=== PATIENT | male | born 1970 ===

== ENCOUNTER 2023-02-12 07:55 | Day surgery (SDC) | payer BC ==
[~2023-02-12] VITALS: Ht 175.3 cm; Wt 108.7 kg
[~2023-02-12 07:55] MED LIST: AMOX250 PO; ESOM20 PO; ROSU10TA PO
[2023-02-12 11:21] VITALS: BP 117/81
--- NOTE | 2023-02-12 12:41 | NUR ---
02/12/23 1241 Nidhi Arceo LATE ENTRY: PT ABLE TO TOLERATE EATING AND DRINKING WITH NO ISSUES. NO C/O NAUSEA. PT C/O INCREASING PAIN AT OPERATIVE SITE IN SDU, GAVE 50MG OF TRAMADOL PER MD ORDERS. VSS. AT BEDSIDE FOR DISCHARGE INSTRUCTIONS. PT ASKED MD IF OKAY TO GO TO [facility] APPT TOMORROW, MD APPROVED WITH NO CONCERNS, REMINDED PT TO KEEP EXTREMITY ELEVATED. PT STATED NUMBNESS IN FINGERS AND "FELT LIKE THE DRESSING IS TOO TIGHT". MD CHECKED PERFUSION OF FINGERS, PERFUSION WNL, PT EDUCATED THAT THE NUMBING AGENTS GIVEN FOR SURGERY COULD MAKE THE FINGERS FEEL NUMB. LATER BEFORE DISCHARGE ASKED ABOUT THE DRESSING "BEING TOO TIGHT, RN EDUCATED PT AND HOW TO CHECK PERFUSION OF EXTREMITY AND S/S OF DECREASED CIRCULATION. PT AND EXPRESSED UNDERSTANDING OF EDUCATION AND REITERATED THAT IF DRESSING BECOMES TOO TIGHT OR S/S OF DECREASED CIRCULATION, DISCHARGE INSTRUCTIONS STATE OKAY TO LOOSEN PREET WRAP BUT KEEP GAUZE IN PLACE FOR 2 DAYS. VSS. PT STATED PAIN DECREASED TO 2/10 AND TOLERABLE AT DISCHARGE. CALLED AFTER DISCHARGE TO GIVE DR. ARRIAZA PAIN CONTROL GUIDELINE, LEFT A MESSAGE THAT SHE CAN PICK THAT UP AT THE [facility] OR CALL AND WILL GO OVER PAIN CONTROL GUIDELINE. RN LET DR. ARRIAZA KNOW THAT PT WAS NOT SENT HOME WITH HANDOUT AND LEFT MESSAGE FOR .
== END 2023-02-12 11:52 | disposition home or self-care (01) ==
LOC: ORSCSDS 07:55
PROVIDERS: Orthopaedic Surgery
PROC: 01N40ZZ Release Ulnar Nerve, Open Approach (ICD-10-PCS; principal; 2023-02-12 09:15)
PROC: 01N54ZZ Release Median Nerve, Percutaneous Endoscopic Approach (ICD-10-PCS; principal; 2023-02-12 09:15)
DX: G56.03 Carpal tunnel syndrome, bilateral upper limbs (principal); G56.23 Lesion of ulnar nerve, bilateral upper limbs; E66.9 Obesity, unspecified; Z68.35 Body mass index [BMI] 35.0-35.9, adult; K21.9 Gastro-esophageal reflux disease without esophagitis; E78.00 Pure hypercholesterolemia, unspecified; Z79.899 Other long term (current) drug therapy
CPT/HCPCS: A9270; J0171; J0690; J1100; J1885; J2405; J2704; J2795; J3010; J7120

== ENCOUNTER 2023-05-28 07:06 | Day surgery (SDC) | payer BC ==
[~2023-05-28] VITALS: Ht 175.3 cm; Wt 108.9 kg
--- NOTE | 2023-05-28 08:08 | NUR ---
05/28/23 0808 Velma Dunne 1 MG VERSED GIVEN PER ORDERS AT 0759 AFTER CATIE VERIFIED PROCEDURE AND CONSENT WITH PT
[2023-05-28 08:57] VITALS: BP 123/79
--- NOTE | 2023-05-28 09:11 | NUR ---
05/28/23 0911 Mitchel Atkins IV REMOVED INTACT. SITE WNL.
== END 2023-05-28 09:25 | disposition home or self-care (01) ==
LOC: ORSCSDS 07:06
PROVIDERS: Orthopaedic Surgery
PROC: 01N54ZZ Release Median Nerve, Percutaneous Endoscopic Approach (ICD-10-PCS; principal; 2023-05-28 08:30)
DX: G56.02 Carpal tunnel syndrome, left upper limb (principal); Z79.899 Other long term (current) drug therapy
CPT/HCPCS: J2250; J7120

== ENCOUNTER 2025-01-15 16:15 | Observation (INO) | payer OTHER ==
[~2025-01-15] VITALS: Ht 172.7 cm; Wt 107.7 kg
[2025-01-15 17:30] LABS: Albumin, Blood 4.1 g/dL (3.4-5.0); Albumin/Globulin Ratio 1.3 (0.8-1.8); Bilirubin, Total 1.1 mg/dL (0.1-1.0); Bun/Creatinine Ratio 12.4 (12.0-20.0); Calcium, Blood 9.1 mg/dL (8.5-10.1); Creatinine, Blood 1.13 mg/dL (0.60-1.20); Globulin, Blood 3.1 g/dL (2.2-4.0); Potassium, Blood 3.5 mmol/L (3.5-5.5); Total Protein, Blood 7.2 g/dL (6.4-8.2)
[2025-01-15] MEDS ORDERED: NS 1,000 ML IV SCH (17:30)
[2025-01-15] MEDS ORDERED: Ondansetron HCl 2 MG / ML 2ML Vial IV ONE (17:30)
[2025-01-15] MEDS ORDERED: FentaNYL Citrate 50 MCG/ML 2 ML Injection IV ONE (17:30)
[2025-01-15 17:50] LABS: BASOPHILS ABSOLUTE AUTO 0.08 K/mm3 (0.00-0.23); BASOPHILS PERCENT AUTO 1 % (0-2); EOSINOPHILS ABSOLUTE AUTO 0.16 K/mm3 (0.00-0.68); EOSINOPHILS PERCENT AUTO 2 % (0-6); Hematocrit 41.8 % (37.0-53.0); IMMATURE GRAN ABSOLUTE AUTO 0.06 K/mm3 (0.00-0.10); IMMATURE GRAN PERCENT AUTO 1 % (0-1); LYMPHOCYTES ABSOLUTE AUTO 2.34 K/mm3 (0.84-5.20); LYMPHOCYTES PERCENT AUTO 22 % (21-46); MONOCYTES ABSOLUTE AUTO 0.78 K/mm3 (0.16-1.47); MONOCYTES PERCENT AUTO 7 % (4-13); Mean Corpuscular HGB 31.9 pg (26.0-34.0); Mean Corpuscular HGB Conc 35.9 g/dL (31.5-36.5); Mean Corpuscular Volume 89 fL (80-100); Mean Platelet Volume 11.3 fL (9.1-12.4); NEUTROPHILS ABSOLUTE AUTO 7.24 K/mm3 (1.96-9.15); NEUTROPHILS PERCENT AUTO 68 % (41-73); Platelet Count 206 K/mm3 (150-400); RDW Coefficient Variation 11.9 % (11.7-14.2); RDW Standard Deviation 38.6 fL (35.1-46.3); White Blood Cell Count 10.66 K/mm3 (4.00-11.30)
[2025-01-15] MEDS ORDERED: Ondansetron HCl 2 MG / ML 2ML Vial IV PRN (19:05)
[2025-01-15] MEDS ORDERED: HYDROmorphone HCl 2 MG Tab PO PRN (19:05)
[2025-01-15] MEDS ORDERED: FentaNYL Citrate 50 MCG/ML 2 ML Injection IV PRN (19:05)
[2025-01-15] MEDS ORDERED: Lactated Ringer's 1,000 ML IV SCH (19:05)
[2025-01-15] MEDS ORDERED: Ondansetron 4 MG TAB PO PRN (19:05)
[2025-01-15] MEDS ORDERED: Ketorolac Tromethamine 30mg Vial IV PRN (19:20)
[2025-01-15 21:50] VITALS: BP 108/69
[2025-01-16] VITALS (15 sets, daily range): BP systolic 99–125; BP diastolic 56–83
--- NOTE | 2025-01-16 02:56 | NUR ---
0050 RN TO ROOM TO REASSESS MEDICATION ADMIN; PT SLEEPING.
--- NOTE | 2025-01-16 05:31 | NUR ---
01/15/251999 PT TO ROOM FROM ED; AMBULATES INDEPENDENTLY. CHARGE NURSE SETTLED PT AND BEGAN ADMISSION PROCESS.
--- NOTE | 2025-01-16 05:32 | NUR ---
SHIFT SUMMARY PT ADMITTED DURING NOC SHIFT. PT INDEPENDENT IN ROOM; PT GIVEN SURGICAL PACKET AND INSTRUCTIONS ON COMPLETING PRIOR TO SURGERY. PT WITH UMBILICAL HERNIA PRESENT FOR APPROXIMATELY ONE YEAR THAT RECENTLY INCARCERATED. PLAN FOR SURGERY TODAY.
[2025-01-16] MEDS ORDERED: FentaNYL Citrate 50 MCG/ML 2 ML Injection ONE ×2 (08:09→11:49)
[2025-01-16] MEDS ORDERED: propofoL 20 ML IV ONE (08:10)
[2025-01-16] MEDS ORDERED: Dexamethasone Sod Phos 10 MG/ML 1ML VIAL ONE (08:11)
[2025-01-16] MEDS ORDERED: Ondansetron HCl 2 MG / ML 2ML Vial ONE (08:11)
[2025-01-16] MEDS ORDERED: Sugammadex Sodium 200 MG/2ML SDV (100 MG/ML) ONE (08:24)
[2025-01-16] MEDS ORDERED: Rocuronium Bromide 10 MG/ML 5ML Injection IV ONE (08:24)
[2025-01-16] MEDS ORDERED: HYDROmorphone HCl/Pf 1MG SYR IV PRN (08:35)
[2025-01-16] MEDS ORDERED: FentaNYL Citrate 50 MCG/ML 2 ML Injection IV PRN ×3 (08:40→08:45)
[2025-01-16] MEDS ORDERED: Metoclopramide HCl 5MG / ML 2ML Vial IV PRN (08:40)
[2025-01-16] MEDS ORDERED: Midazolam HCl 1MG / ML 2ML Vial IV PRN (08:40)
[2025-01-16] MEDS ORDERED: Lidocaine HCl 1% 5 ML SYR INJ ONE (08:40)
[2025-01-16] MEDS ORDERED: Ondansetron HCl 2 MG / ML 2ML Vial IV PRN (08:40)
[2025-01-16] MEDS ORDERED: Lactated Ringer's 1,000 ML IV SCH (08:55)
--- NOTE | 2025-01-16 09:39 | NUR ---
PT HAS 20G IV IN R AC THAT SHOWS NO SIGNS OF INFILTRATION. NO LEAKING, DRAINAGE, REDNESS NOTED.
[2025-01-16] MEDS ORDERED: CeFAZolin Sodium 2,000 MG in NS 100 ML IV SCH (09:45)
[2025-01-16] MEDS ORDERED: Bupivacaine 0.5% HCl 5 MG/ML 30MLVIAL ONE (09:46)
[2025-01-16] MEDS ORDERED: CeFAZolin Sodium 2,000 MG VIAL ONE (09:46)
--- NOTE | 2025-01-16 10:24 | NUR ---
PT WITH SURGERY NURSE @2582
[2025-01-16] MEDS ORDERED: Ketorolac Tromethamine 30mg Vial ONE (11:08)
[2025-01-16] MEDS ORDERED: HYDROcodone 5-APAP 325 TAB PO PRN (11:25)
--- NOTE | 2025-01-16 11:43 | NUR ---
GLASSES RETURNED TO PATIENT. RING IN CHART
--- NOTE | 2025-01-16 12:30 | NUR ---
PT TO ROOM AROUND 1215 POSTOP. AXO4 - MAKING JOKES. FAMILY IN ROOM. VSS. DENYING NAUSEA/PAIN. 1 DRESSING GAUZE / TEGADERM OVER UMBILICAL SITE, CDI.
[2025-01-16] MEDS ORDERED: HYDR1TAB94 PO (15:11)
--- NOTE | 2025-01-16 16:23 | NUR ---
PT DC'D @1600. ASSUMED CARE OF PT @0700. AXO4 - C/O LITTLE TO PAIN TO UMBILICAL AREA. INDEPDNENT IN ROOM. NPO PRE SURGERY. SEE NOTES. POST OP - PT VOIDED, TOLERATED PO INTAKE WELL, EDUCATED ON DRESSING CHANGE, LIFTING PRECAUTIONS, AND NEED FOR FOLLOWUP WITH DR CLARK. DR EDUARDO LUNA PT - OK'D FOR DC. PT PROVIDED WITH EXTRA DRESSING CHANGE IF NEEDED AT HOME. PT WALKED OUT OF FACILITY WITH BELONGINGS AND HARD SCRIPT @1600
== END 2025-01-16 16:01 | disposition home or self-care (01) ==
LOC: ER 16:15 → SURS 16:16
PROVIDERS: Student in an Organized Health Care Education/Training Program; Surgery; ADMIT Surgery
PROC: 0WQF0ZZ Repair Abdominal Wall, Open Approach (ICD-10-PCS; principal; 2025-01-16 09:30)
DX: K42.0 Umbilical hernia with obstruction, without gangrene (principal); K43.9 Ventral hernia without obstruction or gangrene; K21.9 Gastro-esophageal reflux disease without esophagitis; E78.5 Hyperlipidemia, unspecified; Z79.899 Other long term (current) drug therapy; Z88.5 Allergy status to narcotic agent
CPT/HCPCS: 74177; 80053; 85025; 86850; 86900; 86901; 88304; 93005; 93010; 96361; 96374-59; 96375; 96376; 99285-25; G0378; J0690; J1100; J1885; J2250; J2405; J2704; J3010; J7030; J7120; Q9967